=== PATIENT | male | born 1955 | race Caucasian/White ===

== ENCOUNTER 2018-09-07 17:06 | Emergency (ER) | payer MEDICAID, OTHER ==
[~2018-09-07] VITALS: Ht 170.2 cm; Wt 70.0 kg
[2018-09-07 17:53] LABS: BASOPHILS % (AUTO) 0.4 % (0-1); EOSINOPHILS # (AUTO) 4.2 X10'3 (0-0.9); HEMATOCRIT 26.7 % (42.0-52.0); HEMOGLOBIN 8.9 g/dl (14.0-17.9); LYMPHOCYTES % (AUTO) 20.2 % (21-51); MEAN CORPUSCULAR HEMOGLOBIN 27.5 PG (27.0-31.0); MEAN CORPUSCULAR HGB CONC 33.2 g/dL (33.0-36.5); MEAN CORPUSCULAR VOLUME 82.9 FL (78-98); MEAN PLATELET VOLUME 6.9 FL (7.4-10.4); MONOCYTES # (AUTO) 0.8 X10'3 (0-0.9); MONOCYTES % (AUTO) 7.7 % (2-12); NEUTROPHILS # (AUTO) 2.8 X10'3 (1.8-7.7); NEUTROPHILS % (AUTO) 28.7 % (42-75); PLATELET COUNT 164 X10'3 (140-440); RED BLOOD COUNT 3.22 X10'6 (4.70-6.10); RED CELL DISTRIBUTION WIDTH 23.8 % (11.5-14.5); WHITE BLOOD COUNT 9.9 X10'3 (4.5-11.0)
[2018-09-07 18:05] LABS: INR 1.3 INR; PARTIAL THROMBOPLASTIN TIME 30 SECONDS (22-32); PROTHROMBIN TIME 12.6 SECONDS (9.0-12.0)
[2018-09-07 18:06] LABS: TOTAL CELLS COUNTED 100
[2018-09-07 18:07] LABS: ALANINE AMINOTRANSFERASE 18 U/L (12-78); ALBUMIN 2.2 G/DL (3.4-5.0); ALBUMIN/GLOBULIN RATIO 0.4 (1.1-1.5); ALKALINE PHOSPHATASE 99 IU/L (46-116); ANION GAP 6 (8-16); ANISOCYTOSIS 3+; ASPARTATE AMINO TRANSFERASE 21 U/L (10-37); BLOOD UREA NITROGEN 32 MG/DL (7-18); BUN/CREATININE RATIO 8.8 (5.4-32.0); CALCIUM 8.6 MG/DL (8.5-10.1); CHLORIDE 104 MMOL/L (99-107); CREATININE 3.62 MG/DL (0.60-1.10); GLUCOSE 97 MG/DL (70-104); PLATELET ESTIMATE NORMAL; POTASSIUM 4.4 MMOL/L (3.5-5.1); SODIUM 137 MMOL/L (135-145); TOTAL CARBON DIOXIDE 27.1 MMOL/L (24-32); TOTAL PROTEIN 7.2 G/DL (6.4-8.2); eGFR 17 ML/MIN
[2018-09-07 18:10] LABS: BILIRUBIN,TOTAL 0.5 MG/DL (0.1-1.0)
--- NOTE | 2018-09-07 19:00 | NUR ---
SKIN ASSESSMENT COMPLETED. 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 PHOTOS TAKEN.
--- NOTE | 2018-09-07 19:28 | NUR ---
PT IS NON-ECUADOREAN SPEAKING. PT SPEAKS BAHRAINI - I HAVE SPOKE WITH FAMILY MEMBER THAT DOES SPEAK ENGLIGH BUT IT IS LIMITED WELL. PA WHO IS BAHRAINI SPEAKING HAS ALSO SPOKE WITH FAMILY AND PATIENT. PT DENIES PAIN AT THIS TIME. CONCERNS ARE OVER DIALYSIS PORT BEING "PULLED OUT" AND "SKIN CONDITION"
[2018-09-07 19:46] LABS: COLOR,URINE YELLOW (Yellow); GLUCOSE, URINE NEGATIVE (Neg); KETONES,URINE NEGATIVE (Neg); LEUKOCYTE ESTERASE ,URINE NEGATIVE (Neg); NITRITES, URINE NEGATIVE (Neg); OCCULT BLOOD,URINE LARGE (Neg); PH,URINE 8.5 (4.8-8.0); PROTEIN,URINE >=300 mg/dl (Neg); UROBILINOGEN,URINE 0.2 E.U/dL (0.2-1.0)
[2018-09-07 19:48] LABS: CLARITY,URINE SLIGHTLY CLOUDY (Clear); UA COLLECTION TYPE FOLEY CATH
[2018-09-07 19:58] LABS: BACTERIA,URINE FEW /HPF (Neg); COARSE GRANULAR CAST 0-3 /LPF (NEGATIVE); FINE GRANULAR CAST 0-3 /LPF (NEGATIVE); HYALINE CASTS 0-3 /LPF (NEGATIVE); MUCUS STRANDS FEW /LPF (Neg); RBC,URINE 50-100 /HPF (0-2); SQUAMOUS EPITHELIAL CELL,UR FEW /LPF (FEW); WBC CLUMPS,URINE FEW /HPF (NEGATIVE)
--- NOTE | 2018-09-07 20:29 | NUR ---
PT DENIES NEEDS AT THIS TIME. FAMILY REMAINS AT BEDSIDE. AWAITING HOSPITALIST Addendum: 09/07/18 at 2028 by OSEAS CORRECTION - PT NOT AWAITING HOSPITALIST AT THIS TIME.
[2018-09-07] MEDS ORDERED: normal saline 1000ml 1,000 ML IV ONE (20:35)
--- NOTE | 2018-09-07 20:47 | NUR ---
IV FLUID INFUSING - PER PA, PT TO GET 500ML AND REASSESS LUNG SOUNDS THEN GIVE REMAINING FLUID IF PT CAN TOLERATE. LUNGS CURRENTLY CLEAR AND EQUAL BILATERALLY.
[2018-09-07] MEDS ORDERED: albumin 25% 50mL bottle 100 ML IV ONE (21:00)
[2018-09-07] MEDS ORDERED: albumin (human) 25% 100ml IV 100 ML IV ONE (21:20)
[2018-09-07] MEDS ORDERED: linezolid 600mg/300ml PREMIX 300 ML IV ONE (21:35)
[2018-09-07] MEDS ORDERED: clindamycin 600mg/D5W 50ml 50 ML IV ONE (21:35)
--- NOTE | 2018-09-08 00:33 | NUR ---
REPORT CALLED TO ASIA AT [facility] - SHE IS AWARE THAT PT IS READY TO BE D\C'D BUT NO AMBULANCES AVAILABLE FOR TRANSPORT. ADVISED THAT PT HAS 2 PIV'S AND ASKED IF SHE WOULD LIKE US TO LEAVE THEM OR D\C THEM. THEY ARE REQUESTING THEY BE LEFT IN FOR F\U TREATMENT.
--- NOTE | 2018-09-08 00:56 | NUR ---
PT WAS TRANSPORT READY FOR RETURN TO [facility]) BUT ER WOULD LIKE PT TO BE RE-EVAL BY CAMPAIGN SPECIALIST - TRANSPORT CURRENTLY ON HOLD
[2018-09-08 01:02] VITALS: BP 119/58
[2018-09-08] MEDS ORDERED: diphenhydrAMINE 50 mg/ml inj IV ONE (01:20)
--- NOTE | 2018-09-08 01:59 | NUR ---
[facility] CALLED BACK WITH ETA OF 30 MINS
--- NOTE | 2018-09-08 02:32 | NUR ---
WOUND CULTURE TAKE AND SENT TO LAB FOR REVIEW - UPDATED REPORT CALLED TO ERIBERTO RE: CHANGE IN MEDICATION TO BE GIVEN WHILE AT [facility]
== END 2018-09-08 02:32 ==
LOC: ER 17:07
DX: R21 Rash and other nonspecific skin eruption (principal); T80.218A Other infection due to central venous catheter, initial encounter; E11.622 Type 2 diabetes mellitus with other skin ulcer; L98.418 Non-pressure chronic ulcer of buttock with other specified severity; I95.9 Hypotension, unspecified; I25.10 Atherosclerotic heart disease of native coronary artery without angina pectoris; Z98.890 Other specified postprocedural states; Y92.89 Other specified places as the place of occurrence of the external cause
CPT/HCPCS: 36415; 71045; 80053; 81001; 83605; 84145; 85025; 85610; 85730; 87040; 87088; 96365; 96366; 96367; 96368; 96375; 99285; J1200; J2020; J7030; P9047; 99284; J3490

== ENCOUNTER 2018-09-25 18:04 | Inpatient (IN) | payer MEDICAID ==
[~2018-09-25] VITALS: Ht 167.6 cm; Wt 67.8 kg
--- NOTE | 2018-09-25 18:37 | NUR ---
Spoke to Brian Salomon about patient's condition and orders levophed to be started with CBC, CMP, and type and screen. He also wants Dr. Umaña contacted as they were taking care of this patient. Dr. Wade is on for contact clerk group who Brian called personally.
[2018-09-25] MEDS ORDERED: NORepinephrine 8mg/ 250ml NS 250 ML IV SCH (19:00)
[2018-09-25 19:05] LABS: BASOPHILS # (AUTO) 0.1 X10'3 (0-0.2); BASOPHILS % (AUTO) 0.5 % (0-1); EOSINOPHILS # (AUTO) 2.4 X10'3 (0-0.9); EOSINOPHILS % (AUTO) 21.1 % (0-6); LYMPHOCYTES # (AUTO) 1.3 X10'3 (1.1-4.8); LYMPHOCYTES % (AUTO) 11.4 % (21-51); MEAN CORPUSCULAR HEMOGLOBIN 27.4 PG (27.0-31.0); MEAN CORPUSCULAR HGB CONC 31.7 g/dL (33.0-36.5); MEAN CORPUSCULAR VOLUME 86.5 FL (78-98); MEAN PLATELET VOLUME 8.2 FL (7.4-10.4); MONOCYTES # (AUTO) 0.4 X10'3 (0-0.9); MONOCYTES % (AUTO) 3.3 % (2-12); NEUTROPHILS # (AUTO) 7.2 X10'3 (1.8-7.7); NEUTROPHILS % (AUTO) 63.7 % (42-75); PLATELET COUNT 62 X10'3 (140-440); RED BLOOD COUNT 2.24 X10'6 (4.70-6.10); RED CELL DISTRIBUTION WIDTH 20.3 % (11.5-14.5); WHITE BLOOD COUNT 11.3 X10'3 (4.5-11.0)
[2018-09-25 19:13] LABS: HEMOGLOBIN 6.1 g/dl (14.0-17.9)
[2018-09-25 19:14] LABS: HEMATOCRIT 19.3 % (42.0-52.0)
[2018-09-25 19:17] LABS: ALANINE AMINOTRANSFERASE 18 U/L (12-78); ALBUMIN 2.2 G/DL (3.4-5.0); ALBUMIN/GLOBULIN RATIO 0.6 (1.1-1.5); ALKALINE PHOSPHATASE 78 IU/L (46-116); ANION GAP 11 (8-16); ASPARTATE AMINO TRANSFERASE 16 U/L (10-37); BILIRUBIN,TOTAL 0.3 MG/DL (0.1-1.0); BLOOD UREA NITROGEN 31 MG/DL (7-18); BUN/CREATININE RATIO 15.1 (5.4-32.0); CALCIUM 7.8 MG/DL (8.5-10.1); CHLORIDE 111 MMOL/L (99-107); CREATININE 2.05 MG/DL (0.60-1.10); GLUCOSE 101 MG/DL (70-104); POTASSIUM 4.5 MMOL/L (3.5-5.1); SODIUM 146 MMOL/L (135-145); TOTAL CARBON DIOXIDE 23.8 MMOL/L (24-32); TOTAL PROTEIN 5.8 G/DL (6.4-8.2); eGFR 33 ML/MIN
[2018-09-25] MEDS: NORepinephrine 8mg/ 250ml NS 250 ML IV SCH (19:26)
[2018-09-25] MEDS ORDERED: acetaminophen 325mg tablet PO PRN ×2 (20:05)
[2018-09-25] MEDS ORDERED: ondansetron/PF 4mg/2ml inj IV PRN (20:05)
[2018-09-25] MEDS ORDERED: morphine 4 MG/ML inj SYRINge IV PRN ×2 (20:05)
[2018-09-25] MEDS ORDERED: NORepinephrine 8mg/ 250ml NS 250 ML IV PRN (20:11)
[2018-09-25 20:14] LABS: TOTAL CELLS COUNTED 100
[2018-09-25 20:17] LABS: ANISOCYTOSIS 3+; PLATELET ESTIMATE DECREASED
[2018-09-25] MEDS ORDERED: SYN0.088T PO (21:06)
[2018-09-25] MEDS ORDERED: ONDA4TAB6 PO (21:06)
[2018-09-25] MEDS ORDERED: VIT1TAB.4 PO (21:06)
[2018-09-25] MEDS ORDERED: HEPA100D36 SQ (21:06)
[2018-09-25] MEDS ORDERED: ACET650T11 PO (21:06)
[2018-09-25] MEDS ORDERED: POLY17PO10 PO (21:06)
[2018-09-25] MEDS ORDERED: FLO0.4C PO (21:06)
[2018-09-25] MEDS ORDERED: DOCU-28 PO (21:06)
[2018-09-25] MEDS ORDERED: FERR324T3 PO (21:06)
[2018-09-25] MEDS ORDERED: EPOE1000 SQ (21:06)
[2018-09-25] MEDS ORDERED: LACT1CAP65 PO (21:06)
[2018-09-25] MEDS ORDERED: WOOL454C TOP (21:06)
[2018-09-25] MEDS ORDERED: HYDR-4383 PO (21:06)
[2018-09-25] MEDS ORDERED: PRAM177L19 TOP (21:06)
[2018-09-25] MEDS ORDERED: DOCU1ENE3 RC (21:06)
[2018-09-25] MEDS ORDERED: MIDO2.5T14 PO (21:06)
[2018-09-25] MEDS ORDERED: PANT-47 PO (21:06)
[2018-09-25] MEDS ORDERED: ALBU6.7H INH (21:06)
[2018-09-25] MEDS ORDERED: INSU200I SQ (21:06)
[2018-09-25] MEDS ORDERED: CALC355O3 PO (21:06)
[2018-09-25] MEDS ORDERED: SENN-25 PO (21:06)
[2018-09-25] MEDS ORDERED: OXYC20TA55 PO (21:06)
[2018-09-25] MEDS ORDERED: LORA10TA7 PO (21:06)
--- NOTE | 2018-09-25 21:08 | NUR ---
OKAY TO USE CENTRAL LINE PER GERSON OGDEN.
[2018-09-25 22:00] VITALS: BP 89/53
--- NOTE | 2018-09-25 22:00 | NUR ---
Patient received to ICU 2039. I have received report from Vanita RN in the ED and had the opportunity to ask questions and assume patient care. Pt arrived via gurney with Levophed infusing through CVL to maintain MAP of 65, kasper draining via gravity, although only scant amount as pt is anuric.
[2018-09-25 22:34] VITALS: BP 91/55
[2018-09-25 22:49] VITALS: BP 80/46
[2018-09-25 23:00] VITALS: BP 123/45
[2018-09-25 23:46] VITALS: BP 112/57
[2018-09-26] VITALS (22 sets, daily range): BP systolic 99–124; BP diastolic 39–81
--- NOTE | 2018-09-26 | NUR ---
Pt extremely confused, agitated, and impulsive. He is pulling at all lines and catheters and is aggressive towards staff, received order for restraints from BRIDGETTE Combs.
[2018-09-26] MEDS ORDERED: LORazepam 2 mg/ml vial IV ONE (00:20)
[2018-09-26] MEDS: diphenhydrAMINE 50 mg/ml inj IV PRN ×3 (00:33→23:22)
[2018-09-26 03:10] LABS: BASOPHILS # (AUTO) 0.1 X10'3 (0-0.2); BASOPHILS % (AUTO) 0.6 % (0-1); EOSINOPHILS # (AUTO) 0.9 X10'3 (0-0.9); EOSINOPHILS % (AUTO) 6.9 % (0-6); HEMATOCRIT 22.1 % (42.0-52.0); HEMOGLOBIN 7.1 g/dl (14.0-17.9); LYMPHOCYTES # (AUTO) 1.9 X10'3 (1.1-4.8); MEAN CORPUSCULAR HEMOGLOBIN 28.1 PG (27.0-31.0); MEAN CORPUSCULAR HGB CONC 32.1 g/dL (33.0-36.5); MEAN CORPUSCULAR VOLUME 87.4 FL (78-98); MEAN PLATELET VOLUME 8.6 FL (7.4-10.4); MONOCYTES # (AUTO) 0.4 X10'3 (0-0.9); MONOCYTES % (AUTO) 3.2 % (2-12); NEUTROPHILS # (AUTO) 10.1 X10'3 (1.8-7.7); NEUTROPHILS % (AUTO) 75.3 % (42-75); PLATELET COUNT 68 X10'3 (140-440); RED BLOOD COUNT 2.53 X10'6 (4.70-6.10); RED CELL DISTRIBUTION WIDTH 18.2 % (11.5-14.5); WHITE BLOOD COUNT 13.5 X10'3 (4.5-11.0)
[2018-09-26 03:27] LABS: ALANINE AMINOTRANSFERASE 22 U/L (12-78); ALBUMIN 2.4 G/DL (3.4-5.0); ALBUMIN/GLOBULIN RATIO 0.6 (1.1-1.5); ALKALINE PHOSPHATASE 67 IU/L (46-116); ANION GAP 11 (8-16); ASPARTATE AMINO TRANSFERASE 16 U/L (10-37); BILIRUBIN,TOTAL 0.4 MG/DL (0.1-1.0); BLOOD UREA NITROGEN 35 MG/DL (7-18); BUN/CREATININE RATIO 14.9 (5.4-32.0); CHLORIDE 112 MMOL/L (99-107); CREATININE 2.35 MG/DL (0.60-1.10); GLUCOSE 93 MG/DL (70-104); MAGNESIUM 1.9 MG/DL (1.5-2.4); PHOSPHORUS 4.9 MG/DL (2.3-4.5); POTASSIUM 4.7 MMOL/L (3.5-5.1); SODIUM 148 MMOL/L (135-145); TOTAL CARBON DIOXIDE 25.5 MMOL/L (24-32); TOTAL PROTEIN 6.2 G/DL (6.4-8.2); eGFR 28 ML/MIN
[2018-09-26 03:45] LABS: PLATELET ESTIMATE DECREASED
[2018-09-26 03:46] LABS: ANISOCYTOSIS 2+; HYPOCHROMASIA 1+
--- NOTE | 2018-09-26 06:48 | NUR ---
Problems reprioritized. Patient report given, questions answered & plan of care reviewed with YUDELKA Kennedy.
[2018-09-26] MEDS: pantoprazole 40mg Tablet.DR PO SCH ×2 (07:30→08:00)
[2018-09-26] MEDS: heparin, porcine 5000 units/ml vial SQ SCH ×2 (08:00→20:52)
[2018-09-26] MEDS: levoTHYROXINE 75mcg tablet PO SCH (08:00)
[2018-09-26] MEDS ORDERED: non-formulary drug (Acetaminophen 1 TAB) PO PRN (09:30)
[2018-09-26] MEDS ORDERED: polyethylene glycol 3350 17gm powd pack PO PRN (09:30)
[2018-09-26] MEDS ORDERED: mineral oil/petrolatum, white cream 113gm jar TP PRN (09:30)
[2018-09-26] MEDS ORDERED: CALAMINE TOP SCH (09:30)
[2018-09-26] MEDS ORDERED: dextrose 50%-water 50ml dispensing syringe IV PRN ×2 (09:30)
[2018-09-26] MEDS ORDERED: DOCUSATE SODIUM RC PRN (09:30)
[2018-09-26] MEDS ORDERED: non-formulary drug (Ondansetron Hcl (Zofran) 1 TAB) PO SCH (09:30)
[2018-09-26] MEDS ORDERED: dextrose ORAL solution 15 GM/59 ML bottle PO PRN ×2 (09:30)
[2018-09-26] MEDS ORDERED: insulin Lispro (HumaLOG) vial - multi-dose SQ SCH (09:30)
[2018-09-26] MEDS ORDERED: glucagon, human recombinant 1mg kit SUBCUT PRN (09:30)
[2018-09-26] MEDS ORDERED: BENZOCAINE RC PRN (09:30)
[2018-09-26] MEDS ORDERED: PRAMOXINE TOP SCH (09:30)
[2018-09-26] MEDS ORDERED: emollient combination-Eucerin 250 ML LOTION TP PRN (09:39)
[2018-09-26] MEDS ORDERED: albuterol 2.5 MG/3 ML nebule NEB PRN (09:50)
[2018-09-26] MEDS ORDERED: mag hydrox/Alum hydrox/simeth 30ml oral suspension PO PRN (09:50)
[2018-09-26 10:05] LABS: HEMOGLOBIN A1C 5.1 % (4.5-6.2)
--- NOTE | 2018-09-26 10:55 | NUR ---
Spoke to planner internship via [employer] telephone. Patient alert to name/date of , but is otherwise confused. He believes he is at home in [place]; patient oriented to time, location, and plan of events. Per construction rigger, patient does not appear to be alert and coherent at this time. Patient not cooperative with plan of care and is refusing medications and refusing to eat; Dr. Wade made aware. MD aware of low H/H; continue only daily hemograms to monitor. Will check iron. Plan for TDC placement and will resume dialysis tomorrow. Patient continues to grab at lines, even with restraints. During turns, while loosening restraints, patient grabs at staff's hands and will not let go. Pt's skin excessively dry, will place wound care consult.
[2018-09-26] MEDS ORDERED: HYDR30CR99 TP (11:00)
[2018-09-26] MEDS ORDERED: INSULIN LISPRO 100 UNIT SQ SCH (12:00)
--- NOTE | 2018-09-26 12:05 | NUR ---
Mike trigger: Mike 12; pt has buttock PU. Pt admit needing new TDC w/ hx ESRD on HD, T2DM A1C <7, quadriplegia r/t cervical osteomyelitis, and only speaks malay. Pt refusing meals today and is partially altered per RN. Receiving MVI for HD and wound needs. Will monitor for ONS needs if PO remains low; per MD typically has good appetite prior to admit. No BM yet this admit. Rec: 1. continue renal/carb controlled diet 2. MVI for wound 3. monitor for ONS needs 4. wt per rx Addendum: 09/26/18 at [address] Amended: Links added.
[2018-09-26] MEDS ORDERED: heparin 1,000unit/ml 10ml vial 10 ML ONE (12:54)
[2018-09-26] MEDS ORDERED: LIDOcaine 1%/PF 5ML 10 MG/ML VIAL ONE (12:54)
--- NOTE | 2018-09-26 13:11 | NUR ---
Patient down to IR
[2018-09-26] MEDS ORDERED: midazolam 2 mg/2 ml injection ONE (13:29)
[2018-09-26] MEDS ORDERED: fentaNYL/PF 50MCG/1 ML 2ML syringe ONE (13:29)
--- NOTE | 2018-09-26 15:00 | NUR ---
Patient's skin noted to be sloughing near tape; Dr. Wade notified. He is also aware of the patient's general skin issues including dry, scaly, and weeping skin. No new orders at this time. Wound care orders placed.
[2018-09-26] MEDS: midodrine tablet 2.5 MG TABLET PO SCH ×2 (16:05→23:18)
--- NOTE | 2018-09-26 18:30 | NUR ---
Patient in room ICU 2039. I have received report from Brent JHA and had the opportunity to ask questions and assume patient care.
--- NOTE | 2018-09-26 18:36 | NUR ---
Problems reprioritized. Patient report given, questions answered & plan of care reviewed with Melanie JHA.
[2018-09-26] MEDS: docusate sod 100mg capsule PO SCH (20:00)
[2018-09-26] MEDS: insulin glargine (Lantus) pen - multi-dose SQ SCH (20:00)
[2018-09-26] MEDS: sennosides 8.6mg tablet PO SCH (20:00)
[2018-09-26] MEDS: lactobacillus rhamnosus 10,000 MMU CELLS/CAPSULE PO SCH (20:51)
[2018-09-26] MEDS: oxyCODONE SR 10mg (sust. release) tab PO SCH (20:51)
[2018-09-26] MEDS: tamsulosin 0.4mg capsule PO SCH (20:51)
--- NOTE | 2018-09-26 21:00 | NUR ---
Using addiction nurse via [employer] telephone I was able to have pt eat and take his medicine without difficulty. He is confused, he thinks he is at home and wants to get up to shower, eat and use the restroom normally. He allowed us to clean him but remains restrained as he pulls at everything he can reach as well as continued to scratch at his very scaly skin. Another staff member tried speaking with him in Mauritanian but she reports he is mostly speaking gibberish. Reorientation and reassurance frequently in Mauritanian.
[2018-09-27] VITALS (27 sets, daily range): BP systolic 87–133; BP diastolic 43–73
[2018-09-27] MEDS: NORepinephrine 8mg/ 250ml NS 250 ML IV SCH (04:13)
--- NOTE | 2018-09-27 04:30 | NUR ---
Pt has not slept, continues pulling at whatever he can reach.
[2018-09-27 05:02] LABS: ALANINE AMINOTRANSFERASE 22 U/L (12-78); ALBUMIN 2.4 G/DL (3.4-5.0); ALBUMIN/GLOBULIN RATIO 0.6 (1.1-1.5); ALKALINE PHOSPHATASE 67 IU/L (46-116); ANION GAP 15 (8-16); ASPARTATE AMINO TRANSFERASE 16 U/L (10-37); BILIRUBIN,TOTAL 0.3 MG/DL (0.1-1.0); CALCIUM 8.2 MG/DL (8.5-10.1); CHLORIDE 113 MMOL/L (99-107); GLUCOSE 69 MG/DL (70-104); PHOSPHORUS 5.6 MG/DL (2.3-4.5); POTASSIUM 4.2 MMOL/L (3.5-5.1); SODIUM 150 MMOL/L (135-145); TOTAL CARBON DIOXIDE 22.1 MMOL/L (24-32); TOTAL PROTEIN 6.2 G/DL (6.4-8.2); eGFR 23 ML/MIN
[2018-09-27 05:08] LABS: BASOPHILS # (AUTO) 0.1 X10'3 (0-0.2); BASOPHILS % (AUTO) 0.6 % (0-1); EOSINOPHILS # (AUTO) 3.8 X10'3 (0-0.9); EOSINOPHILS % (AUTO) 34.3 % (0-6); LYMPHOCYTES # (AUTO) 1.7 X10'3 (1.1-4.8); LYMPHOCYTES % (AUTO) 15.5 % (21-51); MEAN CORPUSCULAR HEMOGLOBIN 28.6 PG (27.0-31.0); MEAN CORPUSCULAR HGB CONC 32.6 g/dL (33.0-36.5); MEAN CORPUSCULAR VOLUME 87.7 FL (78-98); MEAN PLATELET VOLUME 8.5 FL (7.4-10.4); MONOCYTES # (AUTO) 0.9 X10'3 (0-0.9); MONOCYTES % (AUTO) 7.9 % (2-12); NEUTROPHILS # (AUTO) 4.6 X10'3 (1.8-7.7); NEUTROPHILS % (AUTO) 41.7 % (42-75); PLATELET COUNT 95 X10'3 (140-440); RED BLOOD COUNT 2.19 X10'6 (4.70-6.10)
[2018-09-27 05:37] LABS: HEMATOCRIT 19.2 % (42.0-52.0); HEMOGLOBIN 6.3 g/dl (14.0-17.9)
[2018-09-27 05:39] LABS: BLOOD UREA NITROGEN 44 MG/DL (7-18); BUN/CREATININE RATIO 15.7 (5.4-32.0)
--- NOTE | 2018-09-27 06:39 | NUR ---
Problems reprioritized. Patient report given, questions answered & plan of care reviewed with Brent JHA.
[2018-09-27] MEDS: sennosides 8.6mg tablet PO SCH ×2 (06:57→20:00)
[2018-09-27] MEDS: docusate sod 100mg capsule PO SCH ×2 (06:57→20:00)
[2018-09-27 07:13] LABS: TOTAL CELLS COUNTED 100
[2018-09-27 07:14] LABS: ANISOCYTOSIS 2+; PLATELET ESTIMATE DECREASED
[2018-09-27 07:15] LABS: HYPOCHROMASIA 1+
[2018-09-27] MEDS ORDERED: epoetin 20,000 units/ml inj IV ONE (08:00)
[2018-09-27] MEDS: oxyCODONE SR 10mg (sust. release) tab PO SCH ×2 (08:00→20:00)
[2018-09-27] MEDS: pantoprazole 40mg Tablet.DR PO SCH ×2 (08:00→09:24)
[2018-09-27] MEDS ORDERED: heparin 1,000 units/ml 10ml inj HE ONE ×2 (08:00)
[2018-09-27] MEDS ORDERED: normal saline 1000ml 250 ML IV PRN (08:00)
[2018-09-27] MEDS: midodrine tablet 2.5 MG TABLET PO SCH ×2 (09:17→16:19)
[2018-09-27] MEDS: ferrous gluconate 324mg tablet PO SCH (09:23)
[2018-09-27] MEDS: levoTHYROXINE 75mcg tablet PO SCH (09:24)
[2018-09-27] MEDS: lactobacillus rhamnosus 10,000 MMU CELLS/CAPSULE PO SCH ×2 (09:26→20:00)
[2018-09-27] MEDS: vitamin B comp w/Vit. C tab 1 TAB TABLET PO SCH (09:26)
[2018-09-27] MEDS: diphenhydrAMINE 50 mg/ml inj IV PRN ×2 (09:28→17:21)
[2018-09-27] MEDS: heparin, porcine 5000 units/ml vial SQ SCH ×2 (09:29→21:46)
[2018-09-27 13:12] LABS: HEMATOCRIT 26.7 % (42.0-52.0); HEMOGLOBIN 8.9 g/dl (14.0-17.9); MEAN CORPUSCULAR HEMOGLOBIN 29.2 PG (27.0-31.0); MEAN CORPUSCULAR HGB CONC 33.3 g/dL (33.0-36.5); MEAN CORPUSCULAR VOLUME 87.6 FL (78-98); MEAN PLATELET VOLUME 8.3 FL (7.4-10.4); PLATELET COUNT 85 X10'3 (140-440); RED BLOOD COUNT 3.05 X10'6 (4.70-6.10); RED CELL DISTRIBUTION WIDTH 18.2 % (11.5-14.5); WHITE BLOOD COUNT 14.5 X10'3 (4.5-11.0)
--- NOTE | 2018-09-27 18:29 | NUR ---
Problems reprioritized. Patient report given, questions answered & plan of care reviewed with Tabby JHA.
--- NOTE | 2018-09-27 18:30 | NUR ---
Patient in room ICU 2039. I have received report from rubén ackerman and had the opportunity to ask questions and assume patient care.
--- NOTE | 2018-09-27 18:45 | NUR ---
flushed central line, blue port does not flush or draw
--- NOTE | 2018-09-27 19:09 | NUR ---
spoke with pt family via court interpreter phone. family informed me that they do not want the [facility] notified
--- NOTE | 2018-09-27 20:03 | NUR ---
family requests a phone call in am to discuss transfer options with an dynamometer tester engine. family states pt "had 3 falls and [facility] and that's why they don't want him to go back, they don't feel like they watch him well enough."
[2018-09-27] MEDS: insulin glargine (Lantus) pen - multi-dose SQ SCH (21:00)
[2018-09-27] MEDS: tamsulosin 0.4mg capsule PO SCH (21:46)
[2018-09-28] VITALS (24 sets, daily range): BP systolic 87–122; BP diastolic 38–74
[2018-09-28] MEDS: midodrine tablet 2.5 MG TABLET PO SCH ×3 (00:28→15:58)
[2018-09-28 03:44] LABS: LYMPHOCYTES # (AUTO) 2.6 X10'3 (1.1-4.8)
[2018-09-28 03:47] LABS: BASOPHILS % (AUTO) 0.3 % (0-1); EOSINOPHILS # (AUTO) 4.9 X10'3 (0-0.9); EOSINOPHILS % (AUTO) 45.1 % (0-6); HEMATOCRIT 24.6 % (42.0-52.0); HEMOGLOBIN 8.2 g/dl (14.0-17.9); LYMPHOCYTES % (AUTO) 24.3 % (21-51); MEAN CORPUSCULAR HEMOGLOBIN 29.3 PG (27.0-31.0); MEAN CORPUSCULAR HGB CONC 33.4 g/dL (33.0-36.5); MEAN CORPUSCULAR VOLUME 87.6 FL (78-98); MEAN PLATELET VOLUME 8.3 FL (7.4-10.4); MONOCYTES % (AUTO) 9.2 % (2-12); NEUTROPHILS # (AUTO) 2.3 X10'3 (1.8-7.7); NEUTROPHILS % (AUTO) 21.1 % (42-75); PLATELET COUNT 97 X10'3 (140-440); RED BLOOD COUNT 2.81 X10'6 (4.70-6.10); RED CELL DISTRIBUTION WIDTH 17.8 % (11.5-14.5); WHITE BLOOD COUNT 10.8 X10'3 (4.5-11.0)
[2018-09-28 04:04] LABS: ALANINE AMINOTRANSFERASE 18 U/L (12-78); ALBUMIN 2.2 G/DL (3.4-5.0); ALBUMIN/GLOBULIN RATIO 0.6 (1.1-1.5); ALKALINE PHOSPHATASE 67 IU/L (46-116); ANION GAP 10 (8-16); ASPARTATE AMINO TRANSFERASE 15 U/L (10-37); BILIRUBIN,TOTAL 0.4 MG/DL (0.1-1.0); BLOOD UREA NITROGEN 23 MG/DL (7-18); BUN/CREATININE RATIO 10.6 (5.4-32.0); CHLORIDE 109 MMOL/L (99-107); CREATININE 2.18 MG/DL (0.60-1.10); GLUCOSE 93 MG/DL (70-104); MAGNESIUM 1.8 MG/DL (1.5-2.4); PHOSPHORUS 3.3 MG/DL (2.3-4.5); POTASSIUM 4.2 MMOL/L (3.5-5.1); SODIUM 145 MMOL/L (135-145); TOTAL CARBON DIOXIDE 26.4 MMOL/L (24-32); TOTAL PROTEIN 5.9 G/DL (6.4-8.2); eGFR 31 ML/MIN
[2018-09-28 05:15] LABS: NUCLEATED RED BLOOD CELLS 1 /100WBC (0-0); TOTAL CELLS COUNTED 100
[2018-09-28 05:16] LABS: ANISOCYTOSIS 2+; BURR CELLS 1+; PLATELET ESTIMATE DECREASED; POIKILOCYTOSIS 1+
--- NOTE | 2018-09-28 06:32 | NUR ---
Patient in room ICU 2039. I have received report from Tabby and had the opportunity to ask questions and assume patient care.
[2018-09-28] MEDS: docusate sod 100mg capsule PO SCH ×2 (08:00→19:22)
[2018-09-28] MEDS: sennosides 8.6mg tablet PO SCH ×2 (08:00→19:22)
[2018-09-28] MEDS: pantoprazole 40mg Tablet.DR PO SCH ×2 (08:00→08:02)
[2018-09-28] MEDS: lactobacillus rhamnosus 10,000 MMU CELLS/CAPSULE PO SCH ×2 (08:01→19:21)
[2018-09-28] MEDS: oxyCODONE SR 10mg (sust. release) tab PO SCH ×2 (08:01→19:22)
[2018-09-28] MEDS: heparin, porcine 5000 units/ml vial SQ SCH ×2 (08:01→19:22)
[2018-09-28] MEDS: vitamin B comp w/Vit. C tab 1 TAB TABLET PO SCH (08:02)
[2018-09-28] MEDS: ferrous gluconate 324mg tablet PO SCH (08:02)
[2018-09-28] MEDS: levoTHYROXINE 75mcg tablet PO SCH (08:02)
[2018-09-28 09:07] LABS: HBSAG SCREEN Negative (Negative)
[2018-09-28] MEDS: DOXYCYCLINE 100MG CAPSULE PO SCH (17:30)
[2018-09-28] MEDS: tamsulosin 0.4mg capsule PO SCH (19:21)
[2018-09-28] MEDS: insulin glargine (Lantus) pen - multi-dose SQ SCH (21:00)
[2018-09-29] VITALS (23 sets, daily range): BP systolic 74–117; BP diastolic 37–70
[2018-09-29] MEDS: midodrine tablet 2.5 MG TABLET PO SCH ×3 (00:50→15:44)
--- NOTE | 2018-09-29 02:44 | NUR ---
Soap and water bath given; patient's skin very flaky and weeping all over his body. Dressings changed on TDC and MML - tape/dressings barely stick to patient's skin. Patient without complaints. VSS.
[2018-09-29 03:07] LABS: BASOPHILS % (AUTO) 0.3 % (0-1); HEMATOCRIT 22.8 % (42.0-52.0); HEMOGLOBIN 7.7 g/dl (14.0-17.9); LYMPHOCYTES # (AUTO) 2.7 X10'3 (1.1-4.8); LYMPHOCYTES % (AUTO) 21.9 % (21-51); MEAN CORPUSCULAR HEMOGLOBIN 29.1 PG (27.0-31.0); MEAN CORPUSCULAR HGB CONC 33.8 g/dL (33.0-36.5); MEAN PLATELET VOLUME 8.2 FL (7.4-10.4); MONOCYTES # (AUTO) 1.3 X10'3 (0-0.9); MONOCYTES % (AUTO) 11.1 % (2-12); NEUTROPHILS # (AUTO) 2.1 X10'3 (1.8-7.7); NEUTROPHILS % (AUTO) 17.7 % (42-75); PLATELET COUNT 107 X10'3 (140-440); RED BLOOD COUNT 2.65 X10'6 (4.70-6.10); WHITE BLOOD COUNT 12.1 X10'3 (4.5-11.0)
[2018-09-29 03:28] LABS: ALANINE AMINOTRANSFERASE 21 U/L (12-78); ALBUMIN 2.3 G/DL (3.4-5.0); ALBUMIN/GLOBULIN RATIO 0.6 (1.1-1.5); ALKALINE PHOSPHATASE 84 IU/L (46-116); ANION GAP 6 (8-16); ASPARTATE AMINO TRANSFERASE 16 U/L (10-37); BILIRUBIN,TOTAL 0.3 MG/DL (0.1-1.0); BLOOD UREA NITROGEN 26 MG/DL (7-18); BUN/CREATININE RATIO 9.3 (5.4-32.0); CALCIUM 8.1 MG/DL (8.5-10.1); CHLORIDE 110 MMOL/L (99-107); GLUCOSE 99 MG/DL (70-104); MAGNESIUM 1.9 MG/DL (1.5-2.4); PHOSPHORUS 2.8 MG/DL (2.3-4.5); POTASSIUM 4.2 MMOL/L (3.5-5.1); SODIUM 146 MMOL/L (135-145); TOTAL CARBON DIOXIDE 29.8 MMOL/L (24-32); TOTAL PROTEIN 6.3 G/DL (6.4-8.2); eGFR 23 ML/MIN
[2018-09-29 04:29] LABS: ANISOCYTOSIS 2+; HYPOCHROMASIA 1+; PLATELET ESTIMATE DECREASED; POIKILOCYTOSIS 1+; TOTAL CELLS COUNTED 100
[2018-09-29] MEDS: docusate sod 100mg capsule PO SCH ×2 (08:00→21:48)
[2018-09-29] MEDS ORDERED: epoetin 20,000 units/ml inj IV ONE (08:00)
[2018-09-29] MEDS ORDERED: heparin 1,000 units/ml 10ml inj HE ONE ×2 (08:00)
[2018-09-29] MEDS: sennosides 8.6mg tablet PO SCH ×2 (08:00→20:00)
[2018-09-29] MEDS ORDERED: albumin (Human) 5% 250ml 250 ML IV PRN (08:00)
[2018-09-29] MEDS ORDERED: heparin 1,000unit/ml 10ml vial 10 ML IV ONE (08:00)
[2018-09-29] MEDS ORDERED: normal saline 1000ml 250 ML IV PRN (08:00)
[2018-09-29] MEDS: pantoprazole 40mg Tablet.DR PO SCH (08:14)
[2018-09-29] MEDS: lactobacillus rhamnosus 10,000 MMU CELLS/CAPSULE PO SCH ×2 (08:14→21:48)
[2018-09-29] MEDS: DOXYCYCLINE 100MG CAPSULE PO SCH ×2 (08:15→21:48)
[2018-09-29] MEDS: ferrous gluconate 324mg tablet PO SCH (08:15)
[2018-09-29] MEDS: levoTHYROXINE 75mcg tablet PO SCH (08:15)
[2018-09-29] MEDS: oxyCODONE SR 10mg (sust. release) tab PO SCH ×2 (08:15→21:48)
[2018-09-29] MEDS: vitamin B comp w/Vit. C tab 1 TAB TABLET PO SCH (08:15)
[2018-09-29] MEDS: diphenhydrAMINE 50 mg/ml inj IV PRN ×2 (08:16→15:44)
[2018-09-29] MEDS: heparin, porcine 5000 units/ml vial SQ SCH ×2 (08:16→21:48)
--- NOTE | 2018-09-29 11:41 | NUR ---
Reassessment: Per MD progress notes WBC showed eosinophilia, stool to be checked to R/O parasite. Patient's PO intake has significantly improved with documented intake 75-100% meeting nutrient needs. LBM 09/28. Per MD notes pt with minimal diarrhea. Pt remains A/O x 2 and impulsive per physical assessment. Will continue to follow. Rec: 1. continue renal/carb controlled diet 2. MVI for wound 3. monitor for ONS needs 4. wt per rx 5. monitor need for additional bowel care Addendum: 09/29/18 at [address] Amended: Links added.
--- NOTE | 2018-09-29 11:55 | NUR ---
Patient pulled out central line; Per noc shift, patient tolerating without restraints and following commands. However, at 1130, patient scratching and accidently pulled out left subclavian central line. Dr. Trujillo called to notify her and okay to start PIV. Patient has been tolerating off of Levophed. Orders to renew restraints. Will continue to monitor.
--- NOTE | 2018-09-29 18:23 | NUR ---
Problems reprioritized. Patient report given, questions answered & plan of care reviewed with Mac RN.
[2018-09-29] MEDS: NORepinephrine 8mg/ 250ml NS 250 ML IV SCH (18:35)
[2018-09-29] MEDS: insulin glargine (Lantus) pen - multi-dose SQ SCH (21:00)
[2018-09-29] MEDS: tamsulosin 0.4mg capsule PO SCH (21:48)
--- NOTE | 2018-09-29 23:30 | NUR ---
RN Note -Change in LOC Pt confused, pulling off clothes, climbing out of bed, saying he wants to go home.
[2018-09-30] VITALS (24 sets, daily range): BP systolic 86–120; BP diastolic 38–73
--- NOTE | 2018-09-30 00:45 | NUR ---
RN Note -Pt getting more agitated and angry. Refusing meds, refusing to use pediatric medical assistant phone.
[2018-09-30 02:08] LABS: BASOPHILS # (AUTO) 0.1 X10'3 (0-0.2); BASOPHILS % (AUTO) 0.5 % (0-1); EOSINOPHILS # (AUTO) 7.4 X10'3 (0-0.9); HEMATOCRIT 24.4 % (42.0-52.0); HEMOGLOBIN 8.4 g/dl (14.0-17.9); LYMPHOCYTES # (AUTO) 3.4 X10'3 (1.1-4.8); LYMPHOCYTES % (AUTO) 19.6 % (21-51); MEAN CORPUSCULAR HEMOGLOBIN 29.6 PG (27.0-31.0); MEAN CORPUSCULAR HGB CONC 34.4 g/dL (33.0-36.5); MEAN PLATELET VOLUME 7.9 FL (7.4-10.4); MONOCYTES # (AUTO) 1.2 X10'3 (0-0.9); MONOCYTES % (AUTO) 7.2 % (2-12); NEUTROPHILS # (AUTO) 5.1 X10'3 (1.8-7.7); NEUTROPHILS % (AUTO) 29.7 % (42-75); PLATELET COUNT 128 X10'3 (140-440); RED BLOOD COUNT 2.84 X10'6 (4.70-6.10); RED CELL DISTRIBUTION WIDTH 17.9 % (11.5-14.5); WHITE BLOOD COUNT 17.3 X10'3 (4.5-11.0)
[2018-09-30 02:15] LABS: ALANINE AMINOTRANSFERASE 23 U/L (12-78); ALBUMIN 2.5 G/DL (3.4-5.0); ALBUMIN/GLOBULIN RATIO 0.6 (1.1-1.5); ALKALINE PHOSPHATASE 89 IU/L (46-116); ANION GAP 5 (8-16); ASPARTATE AMINO TRANSFERASE 20 U/L (10-37); BILIRUBIN,TOTAL 0.3 MG/DL (0.1-1.0); BLOOD UREA NITROGEN 10 MG/DL (7-18); BUN/CREATININE RATIO 8.5 (5.4-32.0); CALCIUM 8.2 MG/DL (8.5-10.1); CHLORIDE 105 MMOL/L (99-107); CREATININE 1.17 MG/DL (0.60-1.10); GLUCOSE 112 MG/DL (70-104); MAGNESIUM 1.6 MG/DL (1.5-2.4); PHOSPHORUS 1.3 MG/DL (2.3-4.5); POTASSIUM 3.6 MMOL/L (3.5-5.1); SODIUM 140 MMOL/L (135-145); TOTAL PROTEIN 6.8 G/DL (6.4-8.2); eGFR 63 ML/MIN
[2018-09-30 04:25] LABS: ANISOCYTOSIS 2+; HYPOCHROMASIA 1+; NUCLEATED RED BLOOD CELLS 3 /100WBC (0-0); PLATELET ESTIMATE DECREASED; POIKILOCYTOSIS 1+; POLYCHROMASIA FEW; TOTAL CELLS COUNTED 100
[2018-09-30] MEDS: pantoprazole 40mg Tablet.DR PO SCH (07:30)
[2018-09-30] MEDS: levoTHYROXINE 75mcg tablet PO SCH (08:00)
[2018-09-30] MEDS: oxyCODONE SR 10mg (sust. release) tab PO SCH ×3 (08:00→20:21)
[2018-09-30] MEDS: sennosides 8.6mg tablet PO SCH ×2 (08:00→20:00)
[2018-09-30] MEDS: heparin, porcine 5000 units/ml vial SQ SCH ×2 (08:00→20:00)
[2018-09-30] MEDS: lactobacillus rhamnosus 10,000 MMU CELLS/CAPSULE PO SCH ×2 (08:00→20:00)
[2018-09-30] MEDS: docusate sod 100mg capsule PO SCH ×2 (08:00→20:00)
[2018-09-30] MEDS: ferrous gluconate 324mg tablet PO SCH (08:00)
[2018-09-30] MEDS: vitamin B comp w/Vit. C tab 1 TAB TABLET PO SCH (08:00)
[2018-09-30] MEDS: midodrine tablet 2.5 MG TABLET PO SCH ×3 (08:00→13:29)
[2018-09-30] MEDS: DOXYCYCLINE 100MG CAPSULE PO SCH ×2 (08:30→20:51)
[2018-09-30] MEDS: ziprasidone IM 20mg inj **IM only IM PRN (14:12)
[2018-09-30] MEDS: tamsulosin 0.4mg capsule PO SCH (20:52)
[2018-09-30] MEDS: insulin glargine (Lantus) pen - multi-dose SQ SCH (21:00)
[2018-09-30] MEDS ORDERED: QUEtiapine 25mg tablet PO SCH (21:00)
[2018-10-01] VITALS (17 sets, daily range): BP systolic 83–113; BP diastolic 30–70
[2018-10-01] MEDS: ziprasidone IM 20mg inj **IM only IM PRN (00:24)
[2018-10-01] MEDS ORDERED: diphenhydrAMINE 50 mg/ml inj IV ONE (03:50)
[2018-10-01] MEDS ORDERED: LORazepam 2 mg/ml vial IV PRN (03:55)
[2018-10-01 05:26] LABS: BASOPHILS # (AUTO) 0.1 X10'3 (0-0.2); BASOPHILS % (AUTO) 0.6 % (0-1); EOSINOPHILS # (AUTO) 6.8 X10'3 (0-0.9); HEMATOCRIT 23.6 % (42.0-52.0); HEMOGLOBIN 7.9 g/dl (14.0-17.9); LYMPHOCYTES # (AUTO) 2.2 X10'3 (1.1-4.8); LYMPHOCYTES % (AUTO) 16.9 % (21-51); MEAN CORPUSCULAR HEMOGLOBIN 29.1 PG (27.0-31.0); MEAN CORPUSCULAR HGB CONC 33.5 g/dL (33.0-36.5); MEAN CORPUSCULAR VOLUME 86.8 FL (78-98); MEAN PLATELET VOLUME 7.6 FL (7.4-10.4); MONOCYTES % (AUTO) 7.6 % (2-12); NEUTROPHILS # (AUTO) 3.2 X10'3 (1.8-7.7); NEUTROPHILS % (AUTO) 23.9 % (42-75); PLATELET COUNT 186 X10'3 (140-440); RED BLOOD COUNT 2.72 X10'6 (4.70-6.10); RED CELL DISTRIBUTION WIDTH 18.5 % (11.5-14.5); WHITE BLOOD COUNT 13.3 X10'3 (4.5-11.0)
[2018-10-01 05:43] LABS: ALANINE AMINOTRANSFERASE 26 U/L (12-78); ALBUMIN 2.4 G/DL (3.4-5.0); ALBUMIN/GLOBULIN RATIO 0.6 (1.1-1.5); ALKALINE PHOSPHATASE 81 IU/L (46-116); ANION GAP 9 (8-16); ASPARTATE AMINO TRANSFERASE 26 U/L (10-37); BILIRUBIN,TOTAL 0.4 MG/DL (0.1-1.0); BLOOD UREA NITROGEN 18 MG/DL (7-18); BUN/CREATININE RATIO 8.2 (5.4-32.0); CALCIUM 8.7 MG/DL (8.5-10.1); CHLORIDE 112 MMOL/L (99-107); GLUCOSE 81 MG/DL (70-104); MAGNESIUM 1.8 MG/DL (1.5-2.4); PHOSPHORUS 4.6 MG/DL (2.3-4.5); POTASSIUM 4.2 MMOL/L (3.5-5.1); SODIUM 150 MMOL/L (135-145); TOTAL CARBON DIOXIDE 28.8 MMOL/L (24-32); TOTAL PROTEIN 6.5 G/DL (6.4-8.2); eGFR 31 ML/MIN
[2018-10-01 05:52] LABS: INR 1.1 INR; PARTIAL THROMBOPLASTIN TIME 25 SECONDS (22-32)
[2018-10-01 06:03] LABS: ANISOCYTOSIS 2+; HYPOCHROMASIA 1+; PLATELET ESTIMATE NORMAL; POIKILOCYTOSIS 1+; POLYCHROMASIA FEW; TOTAL CELLS COUNTED 100
[2018-10-01] MEDS: lactobacillus rhamnosus 10,000 MMU CELLS/CAPSULE PO SCH (08:43)
[2018-10-01] MEDS: sennosides 8.6mg tablet PO SCH (08:43)
[2018-10-01] MEDS: ferrous gluconate 324mg tablet PO SCH (08:43)
[2018-10-01] MEDS: vitamin B comp w/Vit. C tab 1 TAB TABLET PO SCH (08:43)
[2018-10-01] MEDS: midodrine tablet 2.5 MG TABLET PO SCH ×3 (08:44→15:03)
[2018-10-01] MEDS: docusate sod 100mg capsule PO SCH (08:44)
[2018-10-01] MEDS: oxyCODONE SR 10mg (sust. release) tab PO SCH (08:44)
[2018-10-01] MEDS: levoTHYROXINE 75mcg tablet PO SCH (08:44)
[2018-10-01] MEDS: DOXYCYCLINE 100MG CAPSULE PO SCH (08:44)
[2018-10-01] MEDS: heparin, porcine 5000 units/ml vial SQ SCH (08:45)
[2018-10-01] MEDS: pantoprazole 40mg Tablet.DR PO SCH (08:45)
== END 2018-10-01 18:15 | DRG 470 ==
LOC: ER 18:05 → ED HOLD 20:11 → ICU 2S 21:45 → CMPBEDREQ 09-26 00:03
PROC: 30233N1 Transfusion of Nonautologous Red Blood Cells into Peripheral Vein, Percutaneous Approach (ICD-10-PCS; 2018-09-25)
PROC: 02HV33Z Insertion of Infusion Device into Superior Vena Cava, Percutaneous Approach (ICD-10-PCS; 2018-09-25)
PROC: 0JH63XZ Insertion of Tunneled Vascular Access Device into Chest Subcutaneous Tissue and Fascia, Percutaneous Approach (ICD-10-PCS; principal; 2018-09-26)
PROC: 02HV33Z Insertion of Infusion Device into Superior Vena Cava, Percutaneous Approach (ICD-10-PCS; 2018-09-26)
PROC: B548ZZA Ultrasonography of Superior Vena Cava, Guidance (ICD-10-PCS; 2018-09-26)
PROC: 30233N1 Transfusion of Nonautologous Red Blood Cells into Peripheral Vein, Percutaneous Approach (ICD-10-PCS; 2018-09-27)
PROC: 5A1D70Z Performance of Urinary Filtration, Intermittent, Less than 6 Hours Per Day (ICD-10-PCS; 2018-09-27)
PROC: 5A1D70Z Performance of Urinary Filtration, Intermittent, Less than 6 Hours Per Day (ICD-10-PCS; 2018-09-29)
DX: I13.11 Hypertensive heart and chronic kidney disease without heart failure, with stage 5 chronic kidney disease, or end stage renal disease (principal); G82.50 Quadriplegia, unspecified; L89.319 Pressure ulcer of right buttock, unspecified stage; D69.59 Other secondary thrombocytopenia; E11.22 Type 2 diabetes mellitus with diabetic chronic kidney disease; D72.1 Eosinophilia; I95.89 Other hypotension; D62 Acute posthemorrhagic anemia; E87.0 Hyperosmolality and hypernatremia; E87.8 Other disorders of electrolyte and fluid balance, not elsewhere classified; E11.43 Type 2 diabetes mellitus with diabetic autonomic (poly)neuropathy; R41.0 Disorientation, unspecified; I25.10 Atherosclerotic heart disease of native coronary artery without angina pectoris; E11.69 Type 2 diabetes mellitus with other specified complication; N18.6 End stage renal disease; M46.22 Osteomyelitis of vertebra, cervical region; Z99.2 Dependence on renal dialysis; Z79.899 Other long term (current) drug therapy; Z79.4 Long term (current) use of insulin
CPT/HCPCS: 36415; 36558; 71045; 76937; 80053; 83036; 83735; 84100; 84145; 84443; 85025; 85027; 85610; 85730; 86885; 86900; 86901; 86920; 87040; 87070; 87340; 90935; 96365; 97110; 97162; 97530; 99291; A9270; C1894; G0257; G0378; J0885; J1200; J1644; J1815; J2001; J2060; J2250; J3010; J3486; P9016